=== PATIENT | female | born 1980 | race Caucasian/White ===

== ENCOUNTER 2017-08-05 11:40 | Emergency (ER) | payer OTHER ==
[~2017-08-05] VITALS: Ht 160 cm; Wt 54.4 kg
[2017-08-05 11:40] VITALS: BP_SYST 129
--- NOTE | 2017-08-05 11:40 | NUR ---
BROUGHT BACK TO BED#4 AND TRIAGED. REPORT GIVEN TO SUJIT
--- NOTE | 2017-08-05 11:41 | NUR ---
Pt complains of intermittent heart palpitations for 5 weeks. Per patient, the last few days have been worse and states that palpitations have been more prominent "at rest." Pt feels nauseous but has not vomited. Pt denies diarrhea. No other injuries/complaints per patient or noted.
--- NOTE | 2017-08-05 11:46 | NUR ---
ER Dr. Law at bedside examining patient.
--- NOTE | 2017-08-05 12:13 | NUR ---
Pt resting comfortably in bed. No acute distress. Will continue to monitor.
[2017-08-05] MEDS ORDERED: ASPIRIN 325 MG TABLET PO ONE (12:45)
[2017-08-05 13:27] LABS: BASOPHILS % (AUTO) 0.4 % (0.0-2.0); EOSINOPHILS % (AUTO) 0.6 % (0.0-4.0); HEMATOCRIT 40.8 % (36-48); LYMPHOCYTES # (AUTO) 1.1 K/uL (1.0-5.5); LYMPHOCYTES % (AUTO) 19.8 % (20.5-51.5); MEAN CORPUSCULAR HEMOGLOBIN 30 pg (27-31); MEAN CORPUSCULAR HGB CONC 34 % (32-36); MEAN CORPUSCULAR VOLUME 88 fL (79.0-98.0); MONOCYTES # (AUTO) 0.2 K/uL (0.0-1.0); MONOCYTES % (AUTO) 4.3 % (1.7-9.3); NEUTROPHILS # (AUTO) 4.2 K/uL (1.8-7.7); NEUTROPHILS % (AUTO) 74.9 % (40.0-70.0); PLATELET COUNT (AUTO) 260 K/uL (130-430); RED BLOOD CELL COUNT(AUTO) 4.63 MIL/uL (4.2-6.2); RED CELL DISTRIBUTION WIDTH 12.6 % (9.0-15.0); WHITE BLOOD COUNT (AUTO) 5.5 K/uL (4.8-10.8)
--- NOTE | 2017-08-05 13:29 | NUR ---
Pt resting comfortably in hospital bed. No acute distress. Will continue to monitor.
[2017-08-05 13:44] LABS: PROTHROMBIN TIME 9.7 SECS (9.5-12.5)
[2017-08-05 13:56] LABS: ALBUMIN 4.6 g/dL (3.4-4.8); CALCIUM 9.6 mg/dL (8.4-11.0); TOTAL BILIRUBIN 0.5 mg/dL (0.0-1.0)
[2017-08-05 14:03] LABS: CREATININE 0.73 mg/dL (0.55-1.30); POTASSIUM 3.3 mmol/L (3.5-5.1)
[2017-08-05 14:10] LABS: ERYTHROCYTE SEDIMENTATION RATE 2 MM/HR (0-20)
--- NOTE | 2017-08-05 14:34 | NUR ---
Patient given written and verbal discharge instructions and verbalizes understanding. ER MD discussed with patient the results and treatment provided. Patient in stable condition. ID arm band removed. Rx of Ativan given. Patient educated on pain management and to follow up with PMD. Pain Scale 0. Opportunity for questions provided and answered.
[2017-08-05 14:49] VITALS: BP_SYST 117
== END 2017-08-05 14:49 | disposition home or self-care (01) ==
LOC: SED 11:40
DX: F41.9 Anxiety disorder, unspecified (principal); Z90.49 Acquired absence of other specified parts of digestive tract
CPT/HCPCS: 36415; 80053; 80061; 82550-TC; 83880; 84484; 85025; 85379; 85610-TC; 85651-TC; 85730-TC; 93005; 99285

== ENCOUNTER 2023-04-12 12:59 | Emergency (ER) | payer BC, OTHER ==
[~2023-04-12] VITALS: Ht 162.6 cm; Wt 56.7 kg
[2023-04-12 13:43] VITALS: BP_SYST 106; PULSE 94; RESP 18; TEMP 98.3; O2SAT 100
[2023-04-12 14:35] LABS: BILIRUBIN,URINE NEGATIVE (NEGATIVE); BLOOD, URINE 3+ (NEGATIVE); GLUCOSE,URINE NEGATIVE (NEGATIVE); KETONES,URINE 1+ (NEGATIVE); LEUKOCYTE ESTERASE ,URINE 3+ (NEGATIVE); NITRITE, URINE POSITIVE (NEGATIVE); PH,URINE 6.5 (5.0-8.0); PROTEIN URINE 2+ (NEGATIVE); UROBILINOGEN,URINE 0.2 (0.2-1.0)
[2023-04-12 14:39] LABS: CLARITY/URINE CLOUDY (CLEAR); COLOR,URINE R (YELLOW)
[2023-04-12 14:44] LABS: BACTERIA,URINE MODERATE /HPF (None Seen); MUCUS,URINE 1+ /LPF (None Seen); RBC,URINE 80-100 /HPF (0-3); WBC,URINE 50-80 /HPF (0-3)
[2023-04-12] MEDS ORDERED: CEPH-548 PO (15:06)
[2023-04-12] MEDS ORDERED: PHEN-726 PO (15:06)
[2023-04-12] MEDS: cephALEXin 500 MG CAPSULE PO ONE ×2 (15:08→15:14)
[2023-04-12] MEDS ORDERED: PHENAZOPYRIDINE HCL 100 MG TABLET PO ONE (15:15)
[2023-04-12 15:23] VITALS: BP_SYST 137; PULSE 85; RESP 18; TEMP 99.3; O2SAT 100
== END 2023-04-12 15:22 | disposition home or self-care (01) ==
LOC: SED 12:59
DX: N39.0 Urinary tract infection, site not specified (principal); R30.0 Dysuria; R39.15 Urgency of urination; R31.9 Hematuria, unspecified; Z79.899 Other long term (current) drug therapy
CPT/HCPCS: 81000; 81025; 87086; 99283